=== PATIENT | male | born 1990 | race Caucasian/White ===

== ENCOUNTER 2021-03-15 10:52 | Emergency (ER) | payer OTHER, SELFPAY ==
[~2021-03-15] VITALS: Ht 180.3 cm; Wt 127.9 kg
[~2021-03-15 10:52] MED LIST: HYDR-5122 PO
[2021-03-15 11:00] VITALS: BP 148/76
--- NOTE | 2021-03-15 11:12 | NUR ---
30 male with CP since Sunday night. Pt reports stressor of having a miscarriage. Pt c/o intermittent left sided chest pain. Pt states the pain radiated to his neck and abdomen area x1 day, but denies any neck/abdomen pain right now. Pain 4/10, sharp. Denies injury/trauma. Allergies: NKA Med hx: none
--- NOTE | 2021-03-15 11:24 | NUR ---
Dr. Wells is evaluating the patient at bedside.
[2021-03-15] MEDS ORDERED: IBUP-2213 PO (11:31)
[2021-03-15 11:35] VITALS: BP 148/76
== END 2021-03-15 12:08 | disposition home or self-care (01) ==
LOC: MED 10:52
DX: R07.89 Other chest pain (principal); J45.909 Unspecified asthma, uncomplicated; F12.90 Cannabis use, unspecified, uncomplicated; Z90.49 Acquired absence of other specified parts of digestive tract; Z79.899 Other long term (current) drug therapy
CPT/HCPCS: 93005; 99283

== ENCOUNTER 2021-04-12 08:01 | Emergency (ER) | payer OTHER ==
[~2021-04-12] VITALS: Ht 180.3 cm; Wt 127.0 kg
[~2021-04-12 08:01] MED LIST changes: +IBUP-2213 PO
[2021-04-12 08:06] VITALS: BP 159/89
--- NOTE | 2021-04-12 08:49 | NUR ---
30 Y/O M BIB SELF FROM HOME, C/O CHEST PAIN FOR 1 WEEK "TINGLING" SENSATION RADIATES FROM CENTER OF THE CHEST TO L PECTORAL AREA. PT STATES HE WAS SEEN BEFORE FOR SAME CC. PT STATES HE WAS SICK LAST WEEK WITH COUGH, NO FEVER, AND "TESTED NEGATIVE FOR VIRUS". DENIES N/V/D; SKIN IS PINK/WARM/DRY; AAOX4 WITH EVEN AND STEADY GAIT; LUNGS CLEAR BL; HR EVEN AND REGULAR; PATIENT STATES PAIN OF 5/10 AT THIS TIME; VSS; PATIENT POSITIONED FOR COMFORT; HOB ELEVATED; BEDRAILS UP X2; BED DOWN. ER MD MADE AWARE OF PT STATUS. PMH: ASTHMA NKA
[2021-04-12] MEDS ORDERED: CYCLOBENZAPRINE 10 MG TAB PO ONE (09:05)
[2021-04-12] MEDS ORDERED: KETOROLAC 30 MG/ML VIAL IM ONE (09:05)
[2021-04-12] MEDS ORDERED: KETOROLAC 15 MG/ML VIAL IVP ONE (09:30)
--- NOTE | 2021-04-12 09:45 | NUR ---
XRAY AT BEDSIDE.
[2021-04-12 09:49] LABS: BASOPHILS # (AUTO) 0.1 K/uL (0.00-0.22); BASOPHILS % (AUTO) 0.9 % (0.0-2.0); EOSINOPHILS # (AUTO) 0.7 K/uL (0-0.4); EOSINOPHILS % (AUTO) 8.7 % (0.0-4.0); HEMATOCRIT 46.3 % (36-52); HEMOGLOBIN 15.7 g/dL (12.0-18.0); LYMPHOCYTES # (AUTO) 2.1 K/uL (2.0-11.5); LYMPHOCYTES % (AUTO) 25.2 % (20.5-51.1); MEAN CORPUSCULAR HEMOGLOBIN 28 pg (27-31); MEAN CORPUSCULAR HGB CONC 34 g/dL (33-37); MEAN CORPUSCULAR VOLUME 82.6 fL (80-94); MONOCYTES # (AUTO) 0.4 K/uL (0.8-1.0); MONOCYTES % (AUTO) 4.5 % (1.7-9.3); NEUTROPHILS % (AUTO) 60.7 % (42.2-75.2); PLATELET COUNT (AUTO) 354 K/uL (140-450); RED BLOOD CELL COUNT(AUTO) 5.61 MIL/uL (4.20-6.10); RED CELL DISTRIBUTION WIDTH 14.3 % (11.6-13.7); WHITE BLOOD COUNT (AUTO) 8.3 K/uL (4.8-10.8)
[2021-04-12 09:59] LABS: ANION GAP 10.3 (8-16); CARBON DIOXIDE 26.8 mmol/L (21-32); CREATININE 0.9 mg/dL (0.6-1.3); POTASSIUM 4.1 mmol/L (3.5-5.1)
[2021-04-12] MEDS ORDERED: CYCL-711 PO (10:32)
[2021-04-12 10:50] VITALS: BP 159/89
--- NOTE | 2021-04-12 10:50 | NUR ---
Patient discharged with v/s stable. Written and verbal after care instructions given and explained. Patient alert, oriented and verbalized understanding of instructions. Ambulatory with steady gait. All questions addressed prior to discharge. ID band removed. Patient advised to follow up with PMD. Rx of CYCLOBENZAPRINE HCL given. Patient educated on indication of medication including possible reaction and side effects. Opportunity to ask questions provided and answered.
== END 2021-04-12 10:50 | disposition home or self-care (01) ==
LOC: MED 08:01
DX: R07.9 Chest pain, unspecified (principal)
CPT/HCPCS: 36415; 71045; 80048; 84484; 85025; 93005; 96374; 99285; J1885

== ENCOUNTER 2022-06-28 08:27 | Emergency (ER) | payer OTHER ==
[~2022-06-28] VITALS: Ht 180.3 cm; Wt 137.0 kg
[~2022-06-28 08:27] MED LIST changes: +CYCL-711 PO
[2022-06-28 08:37] VITALS: BP 166/101
--- NOTE | 2022-06-28 08:49 | NUR ---
PT AMB TO BED 12.
--- NOTE | 2022-06-28 08:57 | NUR ---
31/M WALKED IN C/O SOB ONSET THIS MORNING. PT STATES WAKING UP WITH DIFFICULTY BREATHING AND FELT LIKE HIS THROAT WAS TIGHTENING. ON ROOM AIR SATTING 98% AT THIS TIME. PT STATES HAVING TOOTH EXTRACTION 2 DAYS AGO. VITALS STABLE.
--- NOTE | 2022-06-28 09:01 | NUR ---
Dr. Leone evaluating patient at bedside.
--- NOTE | 2022-06-28 09:10 | NUR ---
Patient discharged with v/s stable. Written and verbal after care instructions given and explained. Patient alert, oriented and verbalized understanding of instructions. Ambulatory with steady gait. All questions addressed prior to discharge. ID band removed. Patient advised to follow up with PMD. Rx of ZYRTEC,EPIPEN, ALBUTEROL given. Patient educated on indication of medication including possible reaction and side effects. Opportunity to ask questions provided and answered.
[2022-06-28] MEDS ORDERED: EPIN1KIT31 IM (09:12)
[2022-06-28] MEDS ORDERED: CETI10SG1 PO (09:12)
[2022-06-28] MEDS ORDERED: ALBU6.7H6 IH (09:12)
== END 2022-06-28 09:10 | disposition home or self-care (01) ==
LOC: MED 08:27
DX: R06.02 Shortness of breath (principal)
CPT/HCPCS: 99283